=== PATIENT | male | born 1950 | race Caucasian/White ===

== ENCOUNTER 2019-04-18 07:16 | Outpatient (CLI) | payer MEDICARE, SELFPAY ==
[2019-04-18 07:46] LABS: Prothrombin Time 20.3 Seconds (9.64-11.0)
[2019-04-18 08:37] LABS: Anion Gap 13.5 mmol/L (7-16); Blood Urea Nitrogen 13 mg/dL (7-18); Calcium 8.7 mg/dL (8.5-10.1); Carbon Dioxide 29 mmol/L (21-32); Chloride 106 mmol/L (98-108); Estimated Glomerular Filt Rate > 60; Glucose 83 mg/dL (70-99); Osmolality Calculated 297 mOsm/kg (285-295); Potassium 4.5 mmol/L (3.5-5.1); Sodium 144 mmol/L (136-145)
== END 2019-04-18 07:17 | disposition home or self-care (01) ==
LOC: CHSLAB 07:22
PROVIDERS: PCP Internal Medicine; Visit Provider Specialist
DX: Z79.899 Other long term (current) drug therapy (principal); I34.0 Nonrheumatic mitral (valve) insufficiency; Z95.2 Presence of prosthetic heart valve
CPT/HCPCS: 36415; 80048; 85610

== ENCOUNTER 2019-04-19 12:55 | Outpatient (RCR) | payer MEDICARE, SELFPAY ==
[2019-04-19 14:00] VITALS: BP 141/85; PULSE 92; PULSE 94; RESP 16; RESP 18; O2SAT 97; BMI 31.3
== END 2019-07-18 23:59 | disposition home or self-care (01) ==
PROVIDERS: PCP Internal Medicine; Visit Provider Internal Medicine
DX: Z95.4 Presence of other heart-valve replacement (principal)
CPT/HCPCS: 93798

== ENCOUNTER 2019-05-30 07:30 | Outpatient (RCR) | payer MEDICARE, SELFPAY ==
[2019-03-07 10:00] LABS: INR 3.5; Prothrombin Time 35.1 Seconds (9.64-11.0)
[2019-03-09 10:40] LABS: INR 1.9; Prothrombin Time 18.9 Seconds (9.64-11.0)
[2019-03-10 16:34] LABS: Basophils Absolute Auto 0.02 K/mm3 (0.00-0.10); Basophils Percent Auto 0.2 % (0.0-1.0); Eosinophils Absolute Auto 0.23 K/mm3 (0.02-0.50); Eosinophils Percent Auto 2.5 % (1.0-6.0); Hematocrit 38.8 % (37.0-46.0); Hemoglobin 12.2 g/dL (12.4-15.3); Immature Granulocyte Absolute 0.06 K/mm3 (0.00-0.00); Immature Granulocyte Percent A 0.7 % (0.0-0.0); Lymphocytes Absolute Auto 1.21 K/mm3 (1.10-4.50); Lymphocytes Percent Auto 13.3 % (18.0-42.0); Mean Corpuscular HGB Conc 31.4 g/dL (32.0-36.0); Mean Corpuscular Hemoglobin 30.7 pg (27.0-31.0); Mean Corpuscular Volume 97.7 fL (78.0-102.0); Mean Platelet Volume 10.6 fl (8.7-11.0); Monocytes Percent Auto 9.9 % (2.0-11.0); Neutrophils Absolute Auto 6.7 K/mm3 (1.7-7.2); Neutrophils Percent Auto 73.4 % (50.0-70.0); Platelet Count Result 378 K/mm3 (150-420); Red Blood Count 3.97 M/mm3 (4.70-6.10); Red Cell Distribution Width 12.8 % (11.6-14.4); White Blood Count 9.1 K/mm3 (4.8-10.8)
[2019-03-10 16:43] LABS: Anion Gap 14.2 mmol/L (7-16); Blood Urea Nitrogen 18 mg/dL (7-18); Calcium 8.7 mg/dL (8.5-10.1); Carbon Dioxide 29 mmol/L (21-32); Chloride 103 mmol/L (98-108); Estimated Glomerular Filt Rate > 60; Glucose 98 mg/dL (70-99); Osmolality Calculated 293 mOsm/kg (285-295); Potassium 5.2 mmol/L (3.5-5.1); Sodium 141 mmol/L (136-145)
[2019-03-14 09:31] LABS: INR 1.3; Prothrombin Time 13.4 Seconds (9.64-11.0)
[2019-03-21 08:37] LABS: INR 1.4; Prothrombin Time 14.6 Seconds (9.64-11.0)
[2019-03-28 09:16] LABS: INR 1.6; Prothrombin Time 16.6 Seconds (9.64-11.0)
[2019-04-04 08:57] LABS: INR 1.7; Prothrombin Time 17.2 Seconds (9.64-11.0)
[2019-04-11 08:16] LABS: INR 2.2; Prothrombin Time 22.4 Seconds (9.64-11.0)
[2019-04-25 07:46] LABS: INR 1.9; Prothrombin Time 18.9 Seconds (9.64-11.0)
[2019-05-02 08:30] LABS: INR 2.6; Prothrombin Time 25.7 Seconds (9.64-11.0)
[2019-05-16 07:25] LABS: INR 3.2
[2019-05-30 07:53] LABS: INR 2.7; Prothrombin Time 27.4 Seconds (9.64-11.0)
== END 2019-06-05 23:59 | disposition home or self-care (01) ==
LOC: CHSLAB 07:30
PROVIDERS: PCP Internal Medicine
DX: Z95.2 Presence of prosthetic heart valve (principal); I34.0 Nonrheumatic mitral (valve) insufficiency; I50.9 Heart failure, unspecified
CPT/HCPCS: 36415; 80048; 85025; 85610

== ENCOUNTER 2019-08-08 07:02 | Outpatient (CLI) | payer MEDICARE, SELFPAY ==
[2019-08-08 08:08] LABS: Anion Gap 10.4 mmol/L (7-16); Blood Urea Nitrogen 14 mg/dL (7-18); Calcium 8.5 mg/dL (8.5-10.1); Carbon Dioxide 31 mmol/L (21-32); Chloride 103 mmol/L (98-108); Estimated Glomerular Filt Rate > 60; Glucose 84 mg/dL (70-99); Osmolality Calculated 289 mOsm/kg (285-295); Potassium 4.4 mmol/L (3.5-5.1); Sodium 140 mmol/L (136-145)
== END 2019-08-08 07:03 | disposition home or self-care (01) ==
LOC: CHSLAB 07:04
PROVIDERS: PCP Internal Medicine; Visit Provider Specialist
DX: Z79.899 Other long term (current) drug therapy (principal)
CPT/HCPCS: 36415; 80048

== ENCOUNTER 2020-05-01 07:08 | Outpatient (CLI) | payer MEDICARE, SELFPAY ==
--- NOTE | ~2020-05-01 | XR_ITS ---
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 TECHNIQUE: Frontal and lateral views of the chest were obtained. COMPARISON: None. FINDINGS: There is mild atelectasis in left lower lung zone. There is mild scarring at the lung apice s. No pleural effusion or pneumothorax. The heart size is normal. There are changes of mitral valve r eplacement. Calcified left hilar lymph nodes are consistent with old granulomatous disease. There are surgical clips in the abdomen. There is mild chronic anterior wedging of multiple vertebral bodies. IMPRESSION: 1. Mild atelectasis in left lower lung zone and mild scarring at the lung apices. Reviewed, dictated and finalized at location A. IMPRESSION: 1. Mild atelectasis in left lower lung zone and mild scarring at the lung apice s.
[2020-05-01 07:21] LABS: Hematocrit 44.4 % (37.0-46.0); Hemoglobin 14.8 g/dL (12.4-15.3); Mean Corpuscular HGB Conc 33.3 g/dL (32.0-36.0); Mean Corpuscular Hemoglobin 30.5 pg (27.0-31.0); Mean Corpuscular Volume 91.5 fL (78.0-102.0); Mean Platelet Volume 9.7 fl (8.7-11.0); Platelet Count Result 197 K/mm3 (150-420); Red Blood Count 4.85 M/mm3 (4.70-6.10); Red Cell Distribution Width 12.1 % (11.6-14.4); White Blood Count 5.7 K/mm3 (4.8-10.8)
--- NOTE | 2020-05-01 07:30 | ECG_ITS ---
Measurements Intervals [place] Rate: 76 P: 60 MA: 205 QRS: -63 QRSD: 168 T: 55 QT: 403 QTc: 455 Interpretive Statements SINUS RHYTHM BORDERLINE AV CONDUCTION DELAY RIGHT BUNDLE BRANCH BLOCK LEFT ANTERIOR FASCICULAR BLOCK BORDERLINE ST-T WAVE ABNORMALITY- LATERAL LEADS ABNORMAL ECG Electronically Signed On 05-01-2020 8:19:31 CDT by Steven Pedro D.O.
[2020-05-01 07:44] LABS: Band Neutrophils Percent 0 % (0-6); Eosinophils Absolute Manual 0.22 K/mm3 (0.02-0.5); Eosinophils Percent Manual 4 % (1-6); Lymphocytes Absolute Manual 1.65 K/mm3 (1.1-4.5); Lymphocytes Percent Manual 29 % (18-44); Monocytes Absolute Manual 0.96 K/mm3 (0.1-0.90); Monocytes Percent Manual 17 % (3-9); Neutrophils Absolute Manual 2.85 K/mm3 (1.3-6.7); Neutrophils Percent Manual 50 % (46-73); Platelet Estimate Adequate (Adequate); Total Cells Counted 100
[2020-05-01 08:15] LABS: Anion Gap 8 mmol/L (8-16); Blood Urea Nitrogen 11 mg/dL (7-18); Calcium 8.5 mg/dL (8.5-10.1); Carbon Dioxide 29 mmol/L (21-32); Chloride 100 mmol/L (98-108); Estimated Glomerular Filt Rate > 60; Glucose 107 mg/dL (70-99); Osmolality Calculated 283 mOsm/kg (285-295); Potassium 4.6 mmol/L (3.5-5.1); Sodium 137 mmol/L (136-145)
== END 2020-05-01 07:09 | disposition home or self-care (01) ==
LOC: CHSLAB 07:12
PROVIDERS: PCP Internal Medicine
DX: C44.529 Squamous cell carcinoma of skin of other part of trunk (principal)
CPT/HCPCS: 36415; 71046; 80048; 85025; 93005

== ENCOUNTER 2023-05-12 07:42 | Outpatient (CLI) | payer MEDICARE, SELFPAY ==
--- NOTE | ~2023-05-12 | US_ITS ---
US right upper quadrant INDICATION: Elevated liver enzymes PROCEDURE: Realtime right upper abdominal ultrasound. COMPARISON: No prior studies for comparison. FINDINGS: The pancreas is normal without focal mass or pancreatic ductal dilation. Liver echotexture is increased, consistent with fatty infiltration. There is normal directional flow in the portal ve in. Gallbladder is surgically absent. Common bile duct measures 5 mm. No sonographic Newsome's sign. IMPRESSION: 1: Fatty infiltration of the liver. Reviewed, dictated and finalized at location B.
== END 2023-05-12 07:43 | disposition home or self-care (01) ==
LOC: CHSIMG 07:48
PROVIDERS: PCP Internal Medicine; Visit Provider Internal Medicine
DX: R74.8 Abnormal levels of other serum enzymes (principal); K76.0 Fatty (change of) liver, not elsewhere classified
CPT/HCPCS: 76705

== ENCOUNTER 2023-12-13 06:54 | Day surgery (SDC) | payer MEDICARE, SELFPAY ==
[2023-11-30 11:11] VITALS: BMI 31.9
[2023-12-13 07:35] VITALS: BP 138/83; PULSE 77; RESP 18; TEMP 36.8; O2SAT 98
[2023-12-13] MEDS: LACTATED RINGERS 1,000 ML 150 ML IV CONT (07:40)
--- NOTE | 2023-12-13 08:17 | PM.IMHP ---
H&P: HPI History of Present Illness Date/Time: 12/13/23 08:17 Chief Complaint: history of colon polyps Narrative: this is a 73-year-old man who presents for colonoscopy. His last colonoscopy was 5 years ago and several polyps were removed at that time. He denies any hematochezia or melena. He is family history of colon cancer. Review of Systems Review of Systems: All systems reviewed & are unremarkable except as noted in HPI and below Constitutional: Constitutional: Denies chills, Denies fever(s), Denies headache(s) and Denies weight loss Eyes: Eyes: Denies change in vision ENT: Denies dizziness, Denies headache(s), Denies neck mass and Denies throat swelling Cardiovascular: Cardiovascular: Denies chest pain, Denies lightheadedness and Denies dyspnea Respiratory: Respiratory: Denies cough, Denies dyspnea and Denies wheezing Gastrointestinal: Gastrointestinal: Denies abdominal pain, Denies change in bowel habits, Denies nausea and Denies vomiting Genitourinary: Genitourinary: Denies hematuria and Denies dysuria Musculoskeletal: Musculoskeletal: Reports as per HPI Integumentary/Breasts: Skin/Breast: Reports as per HPI Neurologic: Denies dizziness and Denies headache(s) Allergic/Immunologic: Allergic/Immunologic: Denies throat swelling and Denies wheezing [facility] Family History Family History (System 08/04/19 @ 08:59 by Yany Mercedes) Father No problems noted. Social History Social History (System 08/04/19 @ 08:59 by Yany Mercedes) Smoking packs per day: 1 Smoking cigarettes per day: 20.0 Years smoked: 20 Smoking pack-years: 20.00 Smoking status: Former smoker Tobacco type: cigarettes Alcohol intake: current Substance use: never Substance use type: does not use Living arrangements: with family Spiritual care concerns: No Meds Home Medications and Allergies Home Medications Medication Instructions Recorded Confirmed Type aspirin 81 mg tablet,delayed 81 mg PO DAILY 04/20/19 12/13/23 History release (Aspir-) carvedilol 3.125 mg tablet 3.125 mg PO BID 04/20/19 12/13/23 History ramipril 1.25 mg capsule 1.25 mg PO DAILY 04/20/19 12/13/23 History sumatriptan succinate 50 mg tablet 50 mg PO ONCE 04/20/19 12/13/23 History travoprost 0.004 % eye drops 1 drp ophthalmic (eye) QPM 04/20/19 12/13/23 History alirocumab 75 mg/mL subcutaneous 75 mg subcut [id number] 11/30/23 12/13/23 History pen injector (Praluent Pen) Allergies Allergy/AdvReac Type Severity Reaction Status Date / Time procaine [From Novocain] Allergy Hives Verified 12/13/23 07:33 Kpvckse-WGJ-LsS Reductase AdvReac Cramping Verified 12/13/23 07:33 Inhibitor of the [Xxvtzaq-Dhc-Urr Reductase Muscles Inhibitor] Vital Signs Vital Signs - 24 hr 12/13/23 07:35 Temperature 98.2 F Pulse Rate 77 Respiratory Rate 18 Blood Pressure 138/83 Pulse Oximetry 98 Oxygen Delivery Room Air Exam Const: General: no acute distress and alert Orientation/consciousness: patient oriented x3 HENMT: Head: normocephalic and atraumatic Ears: hearing grossly normal bilaterally Face/Nose/Sinus: Normal nares present Mouth: Yes Normal oral and palatal mucosa present Eyes: Periorbital: periorbital findings normal Sclera: sclerae normal EOM: EOMs intact bilaterally Neck: Neck: normal visual inspection, no lymphadenopathy and trachea midline Chest: Chest palpation & inspection: normal inspection of the chest Resp: Effort & Inspection: normal respiratory effort Auscultation: clear to auscultation bilaterally Cardio: Jugular venous distension: no JVD Rate: regular rate Rhythm: regular rhythm Heart sounds: S1 normal heart sound present and S2 normal heart sound present Peripheral pulses: Peripheral pulses 2+ throughout GI: Inspection: normal to inspection GI Palp: Yes Soft to palpation, No Tenderness to palpation present (GI), No Guarding due to palpation present (GI) and No Rebound tenderness present Percussion: Yes normal to percussion Auscultation: normal bowel sounds : General: Yes no CVA tenderness Back/Spine/Pelvis: Back: no CVA tenderness Neuro: General: patient oriented x3, no focal motor deficits and CN's II-XI intact bilaterally Cognition (Neuro): normal cognition Speech: normal speech Motor exam (neuro): 5/5 motor strength present throughout Extrem: General: capillary refill normal and no clubbing, cyanosis or edema Assessment and Plan Assessment and plan (1) Screening for colorectal cancer: Code(s): Z12.11 - Encounter for screening for malignant neoplasm of colon; Z12.12 - Encounter for screening for malignant neoplasm of rectum Status: Acute Assessment and Plan: I have recommended colonoscopy. I have discussed the procedure, risks, benefits, and alternatives. Questions were answered. Patient is agreeable to proceed. (2) History of colon polyps: Code(s): Z86.0100 - Personal history of colon polyps, unspecified Status: Acute
--- NOTE | 2023-12-13 08:26 | WPDANESEPPF ---
Anes - Initial Pre Proc Eval Procedure: Operation Date: 12/13/23 09:00 Proposed Procedures p Diagnostic Colonoscopy - Kingston Chowdhury DO Date/Time: 12/13/23 08:26 Surgeon: Kingston Chowdhury DO Pre Op Diagnosis: History of Polyps Patient Data Age: 73 Gender: M Height: 1.8 m Weight: 105.1 kg Last Vital Signs Temp 36.8 C 12/13/23 07:35 Pulse 77 12/13/23 07:35 Resp 18 12/13/23 07:35 BP 138/83 12/13/23 07:35 Pulse Ox 98 12/13/23 07:35 O2 Del Method Room Air 12/13/23 07:35 Allergies Allergy/AdvReac Type Severity Reaction Status Date / Time procaine [From Novocain] Allergy Hives Verified 12/13/23 07:33 Sdchxoh-AEX-DyS Reductase AdvReac Cramping Verified 12/13/23 07:33 Inhibitor of the [Vyrrqsv-Axd-Iec Reductase Muscles Inhibitor] Home Medications Medication Instructions Recorded Confirmed Type aspirin 81 mg tablet,delayed 81 mg PO DAILY 04/20/19 12/13/23 History release (Aspir-) carvedilol 3.125 mg tablet 3.125 mg PO BID 04/20/19 12/13/23 History ramipril 1.25 mg capsule 1.25 mg PO DAILY 04/20/19 12/13/23 History sumatriptan succinate 50 mg tablet 50 mg PO ONCE 04/20/19 12/13/23 History travoprost 0.004 % eye drops 1 drp ophthalmic (eye) QPM 04/20/19 12/13/23 History alirocumab 75 mg/mL subcutaneous 75 mg subcut [id number] 11/30/23 12/13/23 History pen injector (Praluent Pen) Patient hx anesthesia problems: none Family hx anesthesia problems: none Results Review: All pre-operative results and documents have been reviewed as part of the pre-operative evaluation. [facility] Past Medical History Medical History (Updated 12/13/23 @ 08:27 by Simone Lyon MD) HTN (hypertension) Obese abdomen Surgical History Surgical History (Updated 12/13/23 @ 08:26 by Simone Lyon MD) H/O mitral valve repair Family History Family History Father No problems noted. Social History Social History Smoking packs per day: 1 Smoking cigarettes per day: 20.0 Years smoked: 20 Smoking pack-years: 20.00 Smoking status: Former smoker Tobacco type: cigarettes Alcohol intake: current Substance use: never Substance use type: does not use Living arrangements: with family Spiritual care concerns: No Anes - Eval Final PreProcedure Day of Procedure 12/13/23 08:26 Patient weight: obese Heart: regular rate and rhythm Lungs: clear to auscultation Airway: Mallampati scale class II Neurological: alert and oriented Last oral intake: >/= 8 hours ASA classification: III Emergent: no Anesthetic plan: proceed Anesthesia type and monitoring: general GIVS and standard monitoring Results Review: All pre-operative results and documents have been reviewed as part of the pre-operative evaluation. Informed Consent: The patient's anesthetic plan and its attendant risks and benefits were discussed with the patient/family/POA. Questions were solicited and answers provided to the satisfaction of the patient/family/POA.
[2023-12-13 08:54] VITALS: BP 104/63; PULSE 71; RESP 15; O2SAT 95
[2023-12-13 08:59] VITALS: BP 105/64; PULSE 69; RESP 16; O2SAT 96
[2023-12-13 09:10] VITALS: BP 107/68; PULSE 68; RESP 15; O2SAT 97
--- NOTE | 2023-12-13 09:20 | WPDANESPN ---
Anes - Prog Note Post-Op Date/Time: 12/13/23 09:20 Cardiovascular status: normal Respiratory status: normal Airway patency: baseline Mental status: baseline Post-Op hydration status: normal Vital Signs: Last Vital Signs Temp 36.8 C 12/13/23 07:35 Pulse 69 12/13/23 08:59 Resp 16 12/13/23 08:59 BP 105/64 12/13/23 08:59 Pulse Ox 96 12/13/23 08:59 O2 Del Method Room Air 12/13/23 08:59 Pain Score (VAS): 0/10 I/O: Intake & Output 12/12/23 12/13/23 12/13/23 23:59 07:59 15:59 Intake Total 200 Balance 200 Patient Feedback: Patient satisfied with anesthetic care.
== END 2023-12-13 09:40 | disposition home or self-care (01) ==
PROVIDERS: PCP Internal Medicine; Visit Provider Surgery
PROC: 0DJD8ZZ Inspection of Lower Intestinal Tract, Via Natural or Artificial Opening Endoscopic (ICD-10-PCS; CPT 45378; principal; 2023-12-13 09:00)
DX: Z86.0100 Personal history of colon polyps, unspecified (principal); D12.3 Benign neoplasm of transverse colon
CPT/HCPCS: 45380

== ENCOUNTER 2023-12-13 10:18 | Outpatient (NON) | payer MEDICARE, SELFPAY | END 2023-12-13 10:19 | disposition home or self-care (01) | LOC: ANHLAB 12-14 10:20 | PROVIDERS: PCP Internal Medicine; Visit Provider Surgery | DX: D12.3 Benign neoplasm of transverse colon (principal); Z86.0100 Personal history of colon polyps, unspecified | CPT/HCPCS: 88305 ==